=== PATIENT | female | born 1960 | race Hispanic/Latino ===

== ENCOUNTER 2023-09-27 05:59 | Day surgery (SDC) | payer OTHER ==
[2023-09-27] VITALS (11 sets, daily range): BP systolic 91–123; BP diastolic 55–73; PULSE 61–74; RESP 13–17
[~2023-09-27] VITALS: Ht 154.9 cm; Wt 65.8 kg
[~2023-09-27 05:59] MED LIST: AMLODIPINE PO; LEVO75TA6 PO; METO-409 PO
[2023-09-27] MEDS: 0.9%NACL 1000ML 1,000 ML IV ONE (06:48)
[2023-09-27] MEDS ORDERED: PROPOFOL 10 MG/ML 20ML VIAL IV ONE (07:54)
== END 2023-09-27 09:20 | disposition home or self-care (01) ==
LOC: DAH 05:59 → ENDO 05:59
PROVIDERS: ATTEND Internal Medicine Gastroenterology
DX: R19.5 Other fecal abnormalities (principal); D12.3 Benign neoplasm of transverse colon; K63.89 Other specified diseases of intestine; K57.30 Diverticulosis of large intestine without perforation or abscess without bleeding; I10 Essential (primary) hypertension; E03.9 Hypothyroidism, unspecified; Z82.5 Family history of asthma and other chronic lower respiratory diseases; Z82.3 Family history of stroke; Z80.9 Family history of malignant neoplasm, unspecified; Z79.890 Hormone replacement therapy; Z98.890 Other specified postprocedural states
CPT/HCPCS: 45380; 45385; J7030 ×2; J2704; A4620; A4215; A4223; A7002; A4222; A4221; A4663; A4606; J3490